=== PATIENT | male | born 1980 | race Caucasian/White ===

== ENCOUNTER 2019-01-27 16:18 | Emergency (ER) | payer OTHER ==
[2019-01-27] MEDS ORDERED: Diphtheria,Pertussis(Acell),Tetanus Vaccine 0.5 ML SDV IM ONE (16:58)
--- NOTE | 2019-01-27 17:03 | EDM.PDOC ---
ED HPI GENERAL MEDICAL PROBLEM - General Chief Complaint: Lower Extremity Injury/Pain Stated Complaint: STEPPED ON NAIL Time Seen by Provider: 01/27/19 16:40 Source of Information: Reports: Patient History Limitations: Reports: No Limitations - History of Present Illness INITIAL COMMENTS - FREE TEXT/NARRATIVE: Alert pleasant 38-year-old male presents with concerns regarding puncture wound to his right foot. 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 Patient was wearing socks and shoes at time of injury. 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 This morning he had increased pain swelling and discomfort of the foot. Patient does not know when his last tetanus shot was and he is from [facility]. We attempted to look up his previous medicine immunization record but none was available. Patient states his pain is fairly tolerable. He is wondering if he can work today. Onset: Sudden Duration: Day(s): (yesterday afternoon around 4pm) Location: Reports: Lower Extremity, Right Front/Back Body Image: 1 - Puncture wound Quality: Reports: Pressure, Stabbing Severity: Moderate Improves with: Reports: Medication, Rest Worsens with: Reports: Movement Associated Symptoms: Reports: No Other Symptoms Right Feet Pain Score (Numeric/FACES): 2 - Related Data Allergies Allergy/AdvReac Type Severity Reaction Status Date / Time No Known Allergies Allergy Verified 01/27/19 16:50 Home Meds: Home Meds Levofloxacin [Levaquin] 500 mg PO DAILY 10 Days #10 tablet 01/27/19 [Rx] Past Medical History - Past Health History Medical/Surgical History: Denies Medical/Surgical History Social & Family History - Tobacco Use Smoking Status *Q: Unknown Ever Smoked Review of Systems - Review of Systems Review Of Systems: ROS reveals no pertinent complaints other than HPI. ED EXAM, GENERAL - Physical Exam Exam: See Below Exam Limited By: No Limitations General Appearance: Alert, WD/WN, No Apparent Distress Respiratory/Chest: No Respiratory Distress, No Accessory Muscle Use Cardiovascular: Regular Rate, Rhythm, No Edema, No Gallop, No JVD, No Murmur, No Rub Extremities: Normal Inspection, Normal Range of Motion, Normal Capillary Refill , Other (swelling and puncture wound plantar surface at level of fourth metatarsal with slight swelling, erythema and pain to palpation) Course - Vital Signs Last Recorded V/S: Last Vital Signs Temp 36.2 C 01/27/19 16:44 Pulse 102 H 01/27/19 16:44 Resp 16 01/27/19 16:44 BP 164/103 H 01/27/19 16:44 Pulse Ox 97 01/27/19 16:44 - Orders/Labs/Meds Orders: Active Orders 24 hr Category Date Time Status Vaccines to be Administered [RC] PER UNIT ROUTINE Care 01/27/19 16:58 Ordered Diphth,Pertuss(Acell),Tet Vac [Adacel] Med 01/27/19 16:58 Once 0.5 ml IM .ONCE ONE Departure - Departure Time of Disposition: 17:12 Disposition: Home, Self-Care 01 Condition: Good Clinical Impression: Puncture wound of foot - Discharge Information Prescriptions: Levofloxacin [Levaquin] 500 mg PO DAILY 10 Days #10 tablet Instructions: Puncture Wound, VIS, Diphtheria, Tetanus, and Pertussis (DTaP) - CDC (02/01/2007) Referrals: PCP,None [Primary Care Provider] - Forms: ED Department Discharge Additional Instructions: TETANUS (LOCKJAW) IMMUNIZATION GENERAL INFORMATION: Tetanus is an acute infectious disease which produces painful tonic spasms of some voluntary muscles. Often the first noticeable sign is stiffness of the jaw (lockjaw). Tetanus shots are indicated for active immunization/protection of children over six years of age and adults. The basic immunization course consists of two doses/injections given at intervals of 4-6 weeks, and followed by a third dose/ injection 6-12 months later. The third dose must be given to consider immunization/prison protection completed.A routine booster dose/injection should be given in ten year intervals throughout life to maintain immunity. GOAL:To prevent tetanus from occurring. TREATMENT/SPECIAL INSTRUCTIONS: 1. For clean minor wounds, a tetanus booster shot is necessary if ten years have elapsed since your last booster. For all other wounds, a booster shot is needed if it has been five or more years since your last booster. 2. A small area of redness and firmness at the site of the Injection (shot) is common, and may last for a few days. 3. If your arm feels stiff and sore, exercise it. You may also apply cold to the injection area for relief of minor discomfort. 4. It is important to keep a record of the date on which you received your Tetanus booster. This is a card for you to record the date of your booster. Cut it out and keep it in your billfold for reference. TETANUS IMMUNIZATION HISTORY DATE DATE DATE How can I take care of myself? Remove foreign bodies that you can easily see, but do not probe in the wound. These are things like pieces of broken wood or metal, glass, dirt--anything that got into the wound when you got hurt. Next, wash the wound as thoroughly as possible with warm water and soap. Put pressure on the wound with a bandage or clean cloth until the bleeding stops. When the bleeding has stopped, keep the wound covered with a clean bandage. Change the bandage each day or whenever it becomes wet or dirty until the skin has healed. This usually takes about a week for minor injuries. Do I need to go to see my healthcare provider or go to the emergency department ? See your healthcare provider or go to an urgent care center or the emergency department the same day if: The wound does not stop bleeding after you have put pressure on it for 10 minutes. The wound is deep, large, or jagged or it gapes open. The wound is on the face and you are concerned about scarring. The area around the wound feels numb. The wound is from an animal or human bite. There is any possibility that some part of what punctured you is still in the wound -- a broken piece of glass, metal, or wood, for example. The wound either went through your shoe or was dirty. It has been more than 5 years since your last tetanus shot. You may need to have your provider clean the wound and possibly close it with tape, adhesive, or stitches. You may need antibiotics to prevent infection. You may also need a tetanus shot. Tetanus is a serious infection that is also known as lockjaw. If it has been more than 5 years since your last shot, you may need a shot. Tetanus vaccine is normally given every 10 years, but you may be due for another shot if you have a dirty wound and it has been more than 5 years since your last shot. What should I watch for? Watch the wound for signs of infection over the next few days. See your healthcare provider or go to the emergency department right away if: The skin is becoming redder or more painful. The wound becomes swollen. You have red streaks from the wound. Pus is draining from the wound. The wound does not heal. Written by Sancho Lee MD - My Orders Last 24 Hours: My Active Orders 01/27/19 16:58 Vaccines to be Administered [RC] PER UNIT ROUTINE Diphth,Pertuss(Acell),Tet Vac [Adacel] 0.5 ml IM .ONCE ONE - Assessment/Plan Last 24 Hours: My Active Orders 01/27/19 16:58 Vaccines to be Administered [RC] PER UNIT ROUTINE Diphth,Pertuss(Acell),Tet Vac [Adacel] 0.5 ml IM .ONCE ONE Plan: LAC PUNCTURE WOUND 1. Soak puncture wound every am and pm with warm soapy water to help clean out area and keep open. 2. Oral antibiotic as directed for infection or prevention of infection. 3. Ibuprofen or Naproxen (with food) as directed for inflammation, pain and swelling. 4. Tylenol (Acetaminophen) every 6-8 hours for mild pain. Max 4000mg per 24 hours. 5. Monitor for signs of infection/cellulitis. If occurs or worsen see PCP of choice for repeat evaluation. 6. Last Tetanus was given today. 7. Return for repeat evaluation if increase, changes, new or worsen symptoms. IF NO PCP Call Clinic of choice to schedule a follow-up appointment and to establish primary care provider and clinic. Clinic Phone numbers given for reference THE DISCHARGE INSTRUCTIONS ARE INTENDED A COMPLEMENT TO AND NOT A REPLACEMENT FOR THE VERBAL INSTRUCTIONS THAT I HAVE PROVIDED YOU TODAY. AFTER GOING OVER THE PLAN OF CARE TONIGHT AND PROVIDING YOU WITH THE VERBAL INSTRUCTIONS AT DISCHARGE YOU HAVE HAD THE OPPORTUNITY TO ASK FURTHER QUESTIONS AND TO CLARIFY UNCERTAINTIES. THANK YOU FOR ALLOWING US TO ASSIST WITH YOUR MEDICAL CONCERNS AND NEEDS. YOU HAVE BEEN GIVEN AN ANTIBIOTIC. YOUR ANTIBIOTIC SHOULD BE GIVEN/TAKEN DIRECTED. TAKE UNTIL MEDICATION IS GONE EVEN IF YOU ARE FEELING BETTER. THIS WILL PREVENT INCREASED RISK OF WORSE INFECTION DUE TO PARTIAL TREATMENT.
== END 2019-01-27 17:21 | disposition home or self-care (01) ==
LOC: EDBD 16:18 → JP.ED 16:18
DX: S91.331A Puncture wound without foreign body, right foot, initial encounter (principal); W45.0XXA Nail entering through skin, initial encounter; Z23 Encounter for immunization; Z79.899 Other long term (current) drug therapy
CPT/HCPCS: 90471; 90715; 99283

== ENCOUNTER 2025-02-13 06:24 | Day surgery (SDC) | payer MEDICAID, OTHER ==
[2025-02-13 06:57] LABS: HEMATOCRIT 44.4 % (38.4-49.7); HEMOGLOBIN 14.9 g/dL (12.9-16.9); MEAN CORPUSCULAR HEMOGLOBIN 29.6 pg (31.6-35.5); MEAN CORPUSCULAR HGB CONC 33.6 g/dL (31.6-35.5); MEAN CORPUSCULAR VOLUME 88.3 fL (81.4-99.0); RED BLOOD CELL COUNT 5.03 M/uL (4.14-5.76); WHITE BLOOD CELL COUNT,WBC 5.8 K/uL (3.2-11.0)
[2025-02-13] MEDS: Lactated Ringers 1,000 ML IV SCH (07:15)
[2025-02-13] MEDS ORDERED: Dexamethasone 4 MG/ML SDV ONE (07:15)
[2025-02-13] MEDS ORDERED: fentaNYL 250 MCG/5 ML SDV ONE ×2 (07:15→07:51)
[2025-02-13] MEDS ORDERED: Glycopyrrolate 0.2 MG/ML 5 ML MDV ONE (07:15)
[2025-02-13] MEDS ORDERED: Propofol 200 MG/20 ML SDV ONE (07:15)
[2025-02-13] MEDS ORDERED: Neostigmine Methylsulfate 10 MG/10 ML MDV ONE (07:15)
[2025-02-13] MEDS ORDERED: Ondansetron 4 MG/2 ML SDV ONE (07:15)
[2025-02-13] MEDS ORDERED: Rocuronium 50 MG/5 ML Vial ONE (07:15)
[2025-02-13 07:18] LABS: A/G RATIO 1.2 (1.2-2.2); ALANINE AMINOTRANSFERASE,ALT 29 U/L (12-78); ALBUMIN 4.2 g/dL (3.4-5.0); ALKALINE PHOSPHATASE 98 U/L (46-116); ASPARTATE AMNIOTRANSFERASE,AST 22 U/L (15-37); BILIRUBIN TOTAL 0.5 mg/dL (0.2-1.0); BLOOD UREA NITROGEN,BUN 20 mg/dL (7-18); CALCIUM 9.1 mg/dL (8.5-10.1); CARBON DIOXIDE,CO2 27 mmol/L (21-32); CHLORIDE,CL 101 mmol/L (100-108); ESTIMATED GFR 94 mL/min (>60); GLUCOSE RANDOM 97 mg/dL (74-106); POTASSIUM,K 3.8 mmol/L (3.6-5.2); PROTEIN TOTAL,TP 7.7 g/dL (6.4-8.2); SODIUM,NA 139 mmol/L (140-148)
[2025-02-13 07:22] LABS: ANION GAP 14.8 mmol/L (5.0-14.0)
[2025-02-13] MEDS: ceFAZolin 2 GM in Premix Bag 1 BAG IV ONE (07:22)
[2025-02-13] MEDS ORDERED: Ketorolac 30 MG/ML SDV ONE (08:07)
[2025-02-13] MEDS ORDERED: hydrALAZINE 20 MG/ML SDV ONE (08:07)
[2025-02-13] MEDS ORDERED: Sodium Chloride 0.9% 10 ML ONE (08:08)
[2025-02-13] MEDS: Bupivacaine 0.25%/EPINEPHrine 1:200,000 30 ML SDV ONE (08:11)
[2025-02-13] MEDS ORDERED: Lactated Ringers 1,000 ML ONE (09:01)
[2025-02-13] MEDS ORDERED: fentaNYL 100 MCG/2 ML SDV ONE (09:35)
[2025-02-13] MEDS: HYDROmorphone 0.5 MG/0.5 ML Syringe IVPUSH PRN (11:05)
[2025-02-13] MEDS: oxyCODONE 5 MG Tab PO PRN (14:09)
== END 2025-02-13 14:50 | disposition home or self-care (01) ==
LOC: JP.SDS 06:24
PROVIDERS: ATTEND Surgery
DX: K40.20 Bilateral inguinal hernia, without obstruction or gangrene, not specified as recurrent (principal); Z87.891 Personal history of nicotine dependence
CPT/HCPCS: 36415; 49650; 80053; 85027; A9270; C1781; J0360; J0690; J1100; J1596; J1885; J2405; J2704; J2710; J3010; J7120; J3490

== ENCOUNTER 2025-06-15 20:22 | Emergency (ER) | payer MEDICAID ==
[2025-06-15] MEDS: Ketorolac 15 MG/ML SDV IVPUSH ONE (21:15)
[2025-06-15] MEDS: diphenhydrAMINE 50 MG/ML SDV IVPUSH ONE (21:18)
[2025-06-15 21:24] LABS: BASOPHILS PERCENT AUTO 0.1 % (0.1-1.3); EOSINOPHILS ABSOLUTE AUTO 0.13 K/uL (0.00-0.40); EOSINOPHILS PERCENT AUTO 1.5 % (0.0-5.4); IMMATURE GRAN PERCENT AUTO 0.2 % (0.0-0.7); LYMPHOCYTES ABSOLUTE AUTO 1.53 K/uL (0.8-3.3); LYMPHOCYTES PERCENT AUTO 17.8 % (11.4-47.7); MONOCYTES ABSOLUTE AUTO 0.46 K/uL (0.20-0.90); MONOCYTES PERCENT AUTO 5.3 % (3.3-12.6); NEUTROPHILS ABSOLUTE AUTO 6.46 K/uL (1.0-7.6); NEUTROPHILS PERCENT AUTO 75.1 % (40.0-78.1); PLATELET COUNT,PLT 271 K/uL (130-375); RED BLOOD CELL COUNT 5.25 M/uL (4.14-5.76); WHITE BLOOD CELL COUNT,WBC 8.6 K/uL (3.2-11.0)
[2025-06-15 21:26] LABS: BASOPHILS ABSOLUTE AUTO 0.01 K/uL (0.00-0.10); IMMATURE GRAN ABSOLUTE AUTO 0.02 K/uL (0.00-0.23)
[2025-06-15 21:34] LABS: BLOOD UREA NITROGEN,BUN 21.0 mg/dL (7-18); CARBON DIOXIDE,CO2 28.0 mmol/L (21-32); CHLORIDE,CL 101.0 mmol/L (100-108); CREATININE 1.1 mg/dL (0.8-1.3); EST CRCL DRUG DOSING (CG) 82.56 mL/min; ESTIMATED GFR 83.0 mL/min (>60); GLUCOSE RANDOM 95.0 mg/dL (74-106); POTASSIUM,K 4.0 mmol/L (3.6-5.2); SODIUM,NA 138.0 mmol/L (140-148)
== END 2025-06-15 22:23 | disposition home or self-care (01) ==
LOC: JP.ED 20:22
DX: L03.114 Cellulitis of left upper limb (principal); E86.0 Dehydration
CPT/HCPCS: 36415; 80048; 83605; 85025; 87040; 96365; 96375; 99283; J0696; J1200; J1885; J7030